=== PATIENT | male | born 1970 | race Caucasian/White ===

== ENCOUNTER 2023-02-26 08:08 | Inpatient (IN) | payer BC ==
[~2023-02-26] VITALS: Ht 185.4 cm; Wt 99.8 kg
[2023-02-26 08:11] VITALS: BP_SYST 173; PULSE 75; O2SAT 98
[2023-02-26 08:40] LABS: BASOPHILS % (AUTO) 0.1 % (0.0-2.0); EOSINOPHILS % (AUTO) 0.1 % (0.0-4.0); HEMATOCRIT 33.5 % (36-54); HEMOGLOBIN 10.5 g/dL (14.0-18.0); LYMPHOCYTES # (AUTO) 0.5 K/uL (1.0-5.5); LYMPHOCYTES % (AUTO) 2.7 % (20.5-51.5); MEAN CORPUSCULAR HEMOGLOBIN 28 pg (27-31); MEAN CORPUSCULAR HGB CONC 31 % (32-36); MEAN CORPUSCULAR VOLUME 89 fL (79.0-98.0); MONOCYTES # (AUTO) 1.1 K/uL (0.0-1.0); MONOCYTES % (AUTO) 5.6 % (1.7-9.3); NEUTROPHILS # (AUTO) 18.2 K/uL (1.8-7.7); NEUTROPHILS % (AUTO) 91.5 % (40.0-70.0); PLATELET COUNT (AUTO) 327 K/uL (130-430); RED BLOOD CELL COUNT(AUTO) 3.76 MIL/uL (4.2-6.2); RED CELL DISTRIBUTION WIDTH 15.6 % (9.0-15.0); WHITE BLOOD COUNT (AUTO) 19.8 K/uL (4.8-10.8)
[2023-02-26 08:54] LABS: ALBUMIN 2.2 g/dL (3.4-4.8); CALCIUM 7.2 mg/dL (8.4-11.0); TOTAL BILIRUBIN 0.9 mg/dL (0.0-1.0)
[2023-02-26] MEDS ORDERED: FURO80TA86 PO (08:59)
[2023-02-26] MEDS ORDERED: SODI650T PO (08:59)
[2023-02-26] MEDS ORDERED: INSU100V53 SUBCUT (08:59)
[2023-02-26] MEDS ORDERED: ISOS30TA85 PO (08:59)
[2023-02-26] MEDS ORDERED: VITD2000 PO (08:59)
[2023-02-26] MEDS ORDERED: INSU100V42 SUBCUT (08:59)
[2023-02-26] MEDS ORDERED: FOLI0.8T41 PO (08:59)
[2023-02-26] MEDS ORDERED: CARV25TA55 PO (08:59)
[2023-02-26] MEDS ORDERED: FOLI-43 PO (08:59)
[2023-02-26] MEDS ORDERED: HYDR-4039 PO (08:59)
[2023-02-26] MEDS ORDERED: CALC667T6 PO (08:59)
[2023-02-26] MEDS ORDERED: KAY15 PO (08:59)
[2023-02-26 09:00] LABS: CREATININE 8.44 mg/dL (0.55-1.30)
[2023-02-26] MEDS ORDERED: LORazepam 2 MG/ML VIAL ONE (09:53)
[2023-02-26] MEDS ORDERED: ZOLPIDEM TARTRATE 5 MG TABLET PO PRN (10:00)
[2023-02-26] MEDS ORDERED: POTASSIUM CHLORIDE 20 MEQ TAB.PRT.SR PO PRN (10:00)
[2023-02-26] MEDS ORDERED: LORazepam 2 MG/ML VIAL IVP ONE (10:00)
[2023-02-26] MEDS ORDERED: MAGNESIUM SULFATE 50 ML IV PRN (10:00)
[2023-02-26] MEDS ORDERED: DOCUSATE SODIUM 100 MG CAPSULE PO PRN (10:00)
[2023-02-26] MEDS ORDERED: levETIRAcetam 1,000 MG in NS 90 ML IV ONE (10:00)
[2023-02-26] MEDS ORDERED: MORPHINE 2 MG/ML INJ. SYRINGE IVP PRN (10:00)
[2023-02-26] MEDS ORDERED: hydrALAZINE HCL 20 MG/ML VIAL IVP PRN (10:00)
[2023-02-26] MEDS ORDERED: ACETAMINOPHEN 325 MG TABLET PO PRN ×2 (10:00→11:30)
[2023-02-26] MEDS ORDERED: MUPIROCIN 2% TOPICAL OINTMENT 22 GM NS PRN (10:00)
[2023-02-26] MEDS ORDERED: DEXTROSE 50% JECT 50 ML DISP.SYRIN IVP PRN (10:00)
[2023-02-26] MEDS ORDERED: VANCOMYCIN HCL 1,000 MG in NS 250 ML IV ONE (14:00)
[2023-02-26 14:51] VITALS: BP_SYST 147; PULSE 69; RESP 17; TEMP 98.2; O2SAT 100
[2023-02-26] MEDS: NACL 0.9% 1,000 ML IV SCH (15:32)
[2023-02-26] MEDS: hydrALAZINE HCL 25 MG TABLET PO SCH ×2 (15:39→20:58)
[2023-02-26] MEDS: CALCIUM ACETATE 667 MG CAP PO SCH ×2 (15:39→20:58)
[2023-02-26 16:00] VITALS: BP_SYST 130; PULSE 72; RESP 18; TEMP 97.6; O2SAT 99
[2023-02-26 19:00] VITALS: O2SAT 94
[2023-02-26 20:00] VITALS: BP_SYST 153; PULSE 78; RESP 18; TEMP 98; O2SAT 97
[2023-02-26] MEDS: levETIRAcetam 500 MG IV PREMIX 100 ML IV SCH (20:54)
[2023-02-26] MEDS: HEPARIN SODIUM,PORCINE 5,000 UNITS/ML VIAL SUBCUT SCH (20:59)
[2023-02-26] MEDS: CARVEDILOL 25 MG TABLET (COREG) PO SCH (21:10)
[2023-02-26 23:54] VITALS: O2SAT 94
[2023-02-27] VITALS (7 sets, daily range): BP systolic 126–153; PULSE 68–77; RESP 16–20; TEMP 97.1–98.5; O2SAT 95–99
[2023-02-27] MEDS: CEFEPIME 1 GM in D5W 50 ML IV SCH (04:20)
[2023-02-27 05:13] LABS: BASOPHILS % (AUTO) 0.1 % (0.0-2.0); EOSINOPHILS % (AUTO) 0.3 % (0.0-4.0); HEMATOCRIT 28.1 % (36-54); LYMPHOCYTES # (AUTO) 0.7 K/uL (1.0-5.5); LYMPHOCYTES % (AUTO) 5.7 % (20.5-51.5); MEAN CORPUSCULAR HEMOGLOBIN 28 pg (27-31); MEAN CORPUSCULAR HGB CONC 32 % (32-36); MEAN CORPUSCULAR VOLUME 89 fL (79.0-98.0); MONOCYTES % (AUTO) 7.7 % (1.7-9.3); NEUTROPHILS # (AUTO) 11.1 K/uL (1.8-7.7); NEUTROPHILS % (AUTO) 86.2 % (40.0-70.0); PLATELET COUNT (AUTO) 248 K/uL (130-430); RED BLOOD CELL COUNT(AUTO) 3.17 MIL/uL (4.2-6.2); RED CELL DISTRIBUTION WIDTH 15.1 % (9.0-15.0); WHITE BLOOD COUNT (AUTO) 12.9 K/uL (4.8-10.8)
[2023-02-27 05:30] LABS: CREATININE 5.97 mg/dL (0.55-1.30); VANCOMYCIN,RANDOM 14.9 ug/mL
[2023-02-27 05:45] LABS: CALCIUM 6.8 mg/dL (8.4-11.0)
[2023-02-27] MEDS: CLINDAMYCIN HCL 150 MG CAPSULE PO SCH ×3 (06:31→18:29)
[2023-02-27] MEDS ORDERED: CARVEDILOL 25 MG TABLET (COREG) PO SCH (09:00)
[2023-02-27] MEDS: NACL 0.9% 1,000 ML IV SCH (09:08)
[2023-02-27] MEDS: levETIRAcetam 500 MG IV PREMIX 100 ML IV SCH (09:08)
[2023-02-27] MEDS: hydrALAZINE HCL 25 MG TABLET PO SCH ×3 (09:09→21:58)
[2023-02-27] MEDS: CARVEDILOL 25 MG TABLET (COREG) PO SCH ×2 (09:10→21:58)
[2023-02-27] MEDS: FUROSEMIDE 80 MG TABLET PO SCH (09:10)
[2023-02-27] MEDS: SODIUM BICARBONATE 650 MG TABLET PO SCH (09:10)
[2023-02-27] MEDS: ISOSORBIDE MONONITRATE 30 MG TAB.ER.24H PO SCH (09:10)
[2023-02-27] MEDS: CALCIUM ACETATE 667 MG CAP PO SCH ×3 (09:10→21:58)
[2023-02-27] MEDS: HEPARIN SODIUM,PORCINE 5,000 UNITS/ML VIAL SUBCUT SCH ×2 (09:11→22:01)
[2023-02-27] MEDS ORDERED: VANCOMYCIN HCL 750 MG in NS 250 ML IV ONE (11:00)
[2023-02-27] MEDS: INSULIN LISPRO SLIDING SCALE 100 UNITS/ML, 3 ML VIAL (humaLOG) SUBCUT PRN (12:47)
[2023-02-27] MEDS: levETIRAcetam 500 MG TABLET PO SCH (22:02)
[2023-02-28] VITALS: BP_SYST 129; PULSE 68; RESP 18; TEMP 98.2; O2SAT 96
[2023-02-28] MEDS: LORazepam 2 MG/ML VIAL IVP PRN ×2 (00:59→15:28)
[2023-02-28] MEDS: CLINDAMYCIN HCL 150 MG CAPSULE PO SCH ×4 (00:59→17:23)
[2023-02-28] MEDS: NACL 0.9% 1,000 ML IV SCH ×2 (02:00→21:40)
[2023-02-28 04:00] VITALS: BP_SYST 140; PULSE 69; RESP 16; TEMP 98.5; O2SAT 97
[2023-02-28] MEDS: CEFEPIME 1 GM in D5W 50 ML IV SCH (04:39)
[2023-02-28 06:22] LABS: BASOPHILS % (AUTO) 0.3 % (0.0-2.0); EOSINOPHILS # (AUTO) 0.1 K/uL (0.0-0.4); EOSINOPHILS % (AUTO) 0.5 % (0.0-4.0); HEMATOCRIT 26.9 % (36-54); HEMOGLOBIN 8.8 g/dL (14.0-18.0); LYMPHOCYTES # (AUTO) 0.5 K/uL (1.0-5.5); LYMPHOCYTES % (AUTO) 4.9 % (20.5-51.5); MEAN CORPUSCULAR HEMOGLOBIN 29 pg (27-31); MEAN CORPUSCULAR HGB CONC 33 % (32-36); MEAN CORPUSCULAR VOLUME 89 fL (79.0-98.0); MONOCYTES # (AUTO) 0.8 K/uL (0.0-1.0); MONOCYTES % (AUTO) 7.9 % (1.7-9.3); NEUTROPHILS # (AUTO) 9.2 K/uL (1.8-7.7); NEUTROPHILS % (AUTO) 86.4 % (40.0-70.0); PLATELET COUNT (AUTO) 239 K/uL (130-430); RED BLOOD CELL COUNT(AUTO) 3.02 MIL/uL (4.2-6.2); RED CELL DISTRIBUTION WIDTH 15.6 % (9.0-15.0); WHITE BLOOD COUNT (AUTO) 10.7 K/uL (4.8-10.8)
[2023-02-28 06:39] LABS: CREATININE 7.45 mg/dL (0.55-1.30)
[2023-02-28 07:00] LABS: CALCIUM 6.6 mg/dL (8.4-11.0)
[2023-02-28 07:42] LABS: VANCOMYCIN,RANDOM 20.4 ug/mL
[2023-02-28 08:00] VITALS: O2SAT 96
[2023-02-28] MEDS: FUROSEMIDE 80 MG TABLET PO SCH (08:45)
[2023-02-28] MEDS: levETIRAcetam 500 MG TABLET PO SCH ×2 (08:45→20:58)
[2023-02-28] MEDS: ISOSORBIDE MONONITRATE 30 MG TAB.ER.24H PO SCH (08:46)
[2023-02-28] MEDS: SODIUM BICARBONATE 650 MG TABLET PO SCH (08:46)
[2023-02-28] MEDS: CALCIUM ACETATE 667 MG CAP PO SCH ×3 (08:46→20:58)
[2023-02-28] MEDS: HEPARIN SODIUM,PORCINE 5,000 UNITS/ML VIAL SUBCUT SCH ×2 (08:49→20:59)
[2023-02-28] MEDS: CARVEDILOL 25 MG TABLET (COREG) PO SCH ×2 (08:50→20:58)
[2023-02-28] MEDS: hydrALAZINE HCL 25 MG TABLET PO SCH ×3 (08:50→20:58)
[2023-02-28 11:51] VITALS: BP_SYST 142; PULSE 71; RESP 17; TEMP 97.7; O2SAT 98
[2023-02-28 17:28] VITALS: BP_SYST 131; PULSE 83; RESP 18; TEMP 98.1; O2SAT 95
[2023-02-28] MEDS ORDERED: LORazepam 2 MG/ML VIAL IVP ONE (18:30)
[2023-02-28 20:00] VITALS: BP_SYST 147; PULSE 85; RESP 18; TEMP 99.1; O2SAT 96
[2023-02-28] MEDS: MORPHINE 2 MG/ML INJ. SYRINGE IVP PRN (21:12)
[2023-02-28 21:52] LABS: BASOPHILS % (AUTO) 0.4 % (0.0-2.0); EOSINOPHILS # (AUTO) 0.1 K/uL (0.0-0.4); EOSINOPHILS % (AUTO) 0.6 % (0.0-4.0); HEMATOCRIT 23.1 % (36-54); LYMPHOCYTES # (AUTO) 0.7 K/uL (1.0-5.5); LYMPHOCYTES % (AUTO) 5.7 % (20.5-51.5); MEAN CORPUSCULAR HEMOGLOBIN 29 pg (27-31); MEAN CORPUSCULAR HGB CONC 32 % (32-36); MEAN CORPUSCULAR VOLUME 89 fL (79.0-98.0); MONOCYTES # (AUTO) 0.9 K/uL (0.0-1.0); MONOCYTES % (AUTO) 6.9 % (1.7-9.3); NEUTROPHILS # (AUTO) 11.3 K/uL (1.8-7.7); NEUTROPHILS % (AUTO) 86.4 % (40.0-70.0); PLATELET COUNT (AUTO) 252 K/uL (130-430); RED BLOOD CELL COUNT(AUTO) 2.59 MIL/uL (4.2-6.2); RED CELL DISTRIBUTION WIDTH 15.3 % (9.0-15.0); WHITE BLOOD COUNT (AUTO) 13.1 K/uL (4.8-10.8)
[2023-02-28 21:53] LABS: HEMOGLOBIN 7.4 g/dL (14.0-18.0)
[2023-03-01] VITALS (12 sets, daily range): BP systolic 103–152; PULSE 71–85; RESP 16–19; TEMP 97.2–99.9; O2SAT 92–99
[2023-03-01] MEDS: CLINDAMYCIN HCL 150 MG CAPSULE PO SCH ×5 (01:17→17:10)
[2023-03-01] MEDS: CEFEPIME 1 GM in D5W 50 ML IV SCH ×2 (04:15→22:10)
[2023-03-01 06:33] LABS: BASOPHILS # (AUTO) 0.1 K/uL (0.0-0.2); BASOPHILS % (AUTO) 0.5 % (0.0-2.0); EOSINOPHILS # (AUTO) 0.1 K/uL (0.0-0.4); EOSINOPHILS % (AUTO) 0.5 % (0.0-4.0); HEMATOCRIT 23.2 % (36-54); HEMOGLOBIN 7.5 g/dL (14.0-18.0); LYMPHOCYTES # (AUTO) 0.6 K/uL (1.0-5.5); LYMPHOCYTES % (AUTO) 5.9 % (20.5-51.5); MEAN CORPUSCULAR HEMOGLOBIN 29 pg (27-31); MEAN CORPUSCULAR HGB CONC 32 % (32-36); MEAN CORPUSCULAR VOLUME 89 fL (79.0-98.0); MONOCYTES # (AUTO) 0.7 K/uL (0.0-1.0); MONOCYTES % (AUTO) 7.3 % (1.7-9.3); NEUTROPHILS # (AUTO) 8.8 K/uL (1.8-7.7); NEUTROPHILS % (AUTO) 85.8 % (40.0-70.0); PLATELET COUNT (AUTO) 211 K/uL (130-430); RED BLOOD CELL COUNT(AUTO) 2.62 MIL/uL (4.2-6.2); RED CELL DISTRIBUTION WIDTH 15.2 % (9.0-15.0); WHITE BLOOD COUNT (AUTO) 10.3 K/uL (4.8-10.8)
[2023-03-01 06:51] LABS: CREATININE 6.02 mg/dL (0.55-1.30); VANCOMYCIN,RANDOM 15.3 ug/mL
[2023-03-01 07:24] LABS: CALCIUM 6.6 mg/dL (8.4-11.0)
[2023-03-01] MEDS ORDERED: PANTOPRAZOLE SODIUM 40 MG/VIAL (PROTONIX) IVP ONE (08:30)
[2023-03-01] MEDS: CALCIUM ACETATE 667 MG CAP PO SCH ×3 (09:49→22:18)
[2023-03-01] MEDS: SODIUM BICARBONATE 650 MG TABLET PO SCH (09:49)
[2023-03-01] MEDS: levETIRAcetam 500 MG TABLET PO SCH ×2 (09:50→22:18)
[2023-03-01] MEDS: ISOSORBIDE MONONITRATE 30 MG TAB.ER.24H PO SCH (09:51)
[2023-03-01] MEDS: CARVEDILOL 25 MG TABLET (COREG) PO SCH ×2 (09:52→21:00)
[2023-03-01] MEDS: hydrALAZINE HCL 25 MG TABLET PO SCH ×3 (09:53→21:00)
[2023-03-01] MEDS: FUROSEMIDE 80 MG TABLET PO SCH (09:54)
[2023-03-01] MEDS: NACL 0.9% 1,000 ML IV SCH (10:27)
[2023-03-01] MEDS: INSULIN LISPRO SLIDING SCALE 100 UNITS/ML, 3 ML VIAL (humaLOG) SUBCUT PRN (12:50)
[2023-03-01 13:49] LABS: BASOPHILS % (AUTO) 0.4 % (0.0-2.0); EOSINOPHILS % (AUTO) 0.4 % (0.0-4.0); LYMPHOCYTES # (AUTO) 0.6 K/uL (1.0-5.5); LYMPHOCYTES % (AUTO) 5.4 % (20.5-51.5); MEAN CORPUSCULAR HEMOGLOBIN 29 pg (27-31); MEAN CORPUSCULAR HGB CONC 33 % (32-36); MEAN CORPUSCULAR VOLUME 89 fL (79.0-98.0); MONOCYTES # (AUTO) 0.7 K/uL (0.0-1.0); MONOCYTES % (AUTO) 6.7 % (1.7-9.3); NEUTROPHILS # (AUTO) 9.3 K/uL (1.8-7.7); NEUTROPHILS % (AUTO) 87.1 % (40.0-70.0); PLATELET COUNT (AUTO) 191 K/uL (130-430); RED BLOOD CELL COUNT(AUTO) 2.32 MIL/uL (4.2-6.2); RED CELL DISTRIBUTION WIDTH 15.1 % (9.0-15.0); WHITE BLOOD COUNT (AUTO) 10.7 K/uL (4.8-10.8)
[2023-03-01 14:04] LABS: HEMATOCRIT 20.6 % (36-54); HEMOGLOBIN 6.7 g/dL (14.0-18.0)
[2023-03-02] MEDS: CLINDAMYCIN HCL 150 MG CAPSULE PO SCH ×5 (00:34→23:18)
[2023-03-02] MEDS: ONDANSETRON HCL 4 MG/2 ML VIAL IVP PRN (03:43)
[2023-03-02 05:24] LABS: BASOPHILS # (AUTO) 0.1 K/uL (0.0-0.2); BASOPHILS % (AUTO) 0.7 % (0.0-2.0); EOSINOPHILS # (AUTO) 0.1 K/uL (0.0-0.4); EOSINOPHILS % (AUTO) 0.5 % (0.0-4.0); LYMPHOCYTES # (AUTO) 0.7 K/uL (1.0-5.5); LYMPHOCYTES % (AUTO) 5.4 % (20.5-51.5); MEAN CORPUSCULAR HEMOGLOBIN 28 pg (27-31); MEAN CORPUSCULAR HGB CONC 32 % (32-36); MEAN CORPUSCULAR VOLUME 89 fL (79.0-98.0); MONOCYTES # (AUTO) 0.7 K/uL (0.0-1.0); MONOCYTES % (AUTO) 6.1 % (1.7-9.3); NEUTROPHILS # (AUTO) 10.6 K/uL (1.8-7.7); NEUTROPHILS % (AUTO) 87.3 % (40.0-70.0); PLATELET COUNT (AUTO) 181 K/uL (130-430); RED BLOOD CELL COUNT(AUTO) 2.18 MIL/uL (4.2-6.2); RED CELL DISTRIBUTION WIDTH 15.4 % (9.0-15.0); WHITE BLOOD COUNT (AUTO) 12.2 K/uL (4.8-10.8)
[2023-03-02 05:32] LABS: HEMOGLOBIN 6.2 g/dL (14.0-18.0)
[2023-03-02 05:33] LABS: HEMATOCRIT 19.3 % (36-54)
[2023-03-02 05:46] LABS: INR 1.3 (0.80-1.20); PROTHROMBIN TIME 13.1 SECS (9.5-12.5)
[2023-03-02 06:00] LABS: VANCOMYCIN,RANDOM 13.3 ug/mL
[2023-03-02 06:20] LABS: CALCIUM 6.3 mg/dL (8.4-11.0); CREATININE 7.59 mg/dL (0.55-1.30)
[2023-03-02 07:00] VITALS: O2SAT 100
[2023-03-02 08:00] VITALS: BP_SYST 133; PULSE 70; RESP 18; TEMP 97.3; O2SAT 100
[2023-03-02] MEDS ORDERED: CALCIUM GLUCONATE 1 GM in NS 100 ML IV ONE (08:00)
[2023-03-02] MEDS: PANTOPRAZOLE SODIUM 40 MG in NS 50 ML IV SCH ×4 (08:00→23:18)
[2023-03-02] MEDS: hydrALAZINE HCL 25 MG TABLET PO SCH ×3 (09:00→20:34)
[2023-03-02] MEDS: CALCIUM ACETATE 667 MG CAP PO SCH ×3 (09:00→20:33)
[2023-03-02] MEDS: SODIUM BICARBONATE 650 MG TABLET PO SCH (09:00)
[2023-03-02] MEDS ORDERED: PANTOPRAZOLE SODIUM 40 MG/VIAL (PROTONIX) IVP SCH (09:00)
[2023-03-02] MEDS: FUROSEMIDE 80 MG TABLET PO SCH (09:00)
[2023-03-02] MEDS: levETIRAcetam 500 MG TABLET PO SCH ×2 (09:00→20:33)
[2023-03-02] MEDS: ISOSORBIDE MONONITRATE 30 MG TAB.ER.24H PO SCH (09:00)
[2023-03-02] MEDS: CARVEDILOL 25 MG TABLET (COREG) PO SCH ×2 (09:00→20:34)
[2023-03-02 11:02] VITALS: BP_SYST 100; PULSE 67; RESP 17; TEMP 97.8; O2SAT 99
[2023-03-02] MEDS ORDERED: VANCOMYCIN HCL 1,000 MG in NS 250 ML IV ONE (14:00)
[2023-03-02] MEDS: NACL 0.9% 1,000 ML IV SCH (15:01)
[2023-03-02 16:53] VITALS: BP_SYST 150; PULSE 78; RESP 17; TEMP 97.5; O2SAT 97
[2023-03-02 17:22] LABS: BASOPHILS # (AUTO) 0.1 K/uL (0.0-0.2); BASOPHILS % (AUTO) 1.4 % (0.0-2.0); EOSINOPHILS # (AUTO) 0.1 K/uL (0.0-0.4); EOSINOPHILS % (AUTO) 1.1 % (0.0-4.0); HEMOGLOBIN 7.6 g/dL (14.0-18.0); LYMPHOCYTES # (AUTO) 0.6 K/uL (1.0-5.5); LYMPHOCYTES % (AUTO) 6.6 % (20.5-51.5); MEAN CORPUSCULAR HEMOGLOBIN 29 pg (27-31); MEAN CORPUSCULAR HGB CONC 33 % (32-36); MEAN CORPUSCULAR VOLUME 88 fL (79.0-98.0); MONOCYTES # (AUTO) 0.5 K/uL (0.0-1.0); MONOCYTES % (AUTO) 5.5 % (1.7-9.3); NEUTROPHILS # (AUTO) 8.2 K/uL (1.8-7.7); NEUTROPHILS % (AUTO) 85.4 % (40.0-70.0); PLATELET COUNT (AUTO) 165 K/uL (130-430); RED BLOOD CELL COUNT(AUTO) 2.61 MIL/uL (4.2-6.2); RED CELL DISTRIBUTION WIDTH 15.4 % (9.0-15.0); WHITE BLOOD COUNT (AUTO) 9.6 K/uL (4.8-10.8)
[2023-03-02] MEDS ORDERED: SIMETHICONE 40 MG/0.6 ML ML ONE (18:56)
[2023-03-02] MEDS ORDERED: fentaNYL CITRATE/PF 100 MCG/2 ML AMP IVP ONE (18:58)
[2023-03-02] MEDS ORDERED: MIDAZOLAM HCL 5 MG/5 ML VIAL IVP ONE (19:01)
[2023-03-02 20:30] VITALS: BP_SYST 110; PULSE 65; RESP 18; TEMP 96.6; O2SAT 100
[2023-03-02] MEDS: INSULIN LISPRO SLIDING SCALE 100 UNITS/ML, 3 ML VIAL (humaLOG) SUBCUT PRN (20:41)
[2023-03-03 01:06] VITALS: BP_SYST 138; PULSE 65; RESP 16; TEMP 97.2; O2SAT 99
[2023-03-03] MEDS: CEFEPIME 1 GM in D5W 50 ML IV SCH (03:59)
[2023-03-03] MEDS: PANTOPRAZOLE SODIUM 40 MG in NS 50 ML IV SCH ×4 (03:59→23:11)
[2023-03-03] MEDS: CLINDAMYCIN HCL 150 MG CAPSULE PO SCH ×4 (05:11→23:10)
[2023-03-03 05:49] LABS: BASOPHILS # (AUTO) 0.1 K/uL (0.0-0.2); BASOPHILS % (AUTO) 0.7 % (0.0-2.0); EOSINOPHILS # (AUTO) 0.1 K/uL (0.0-0.4); EOSINOPHILS % (AUTO) 1.1 % (0.0-4.0); HEMATOCRIT 22.5 % (36-54); HEMOGLOBIN 7.3 g/dL (14.0-18.0); LYMPHOCYTES # (AUTO) 0.6 K/uL (1.0-5.5); LYMPHOCYTES % (AUTO) 5.6 % (20.5-51.5); MEAN CORPUSCULAR HEMOGLOBIN 29 pg (27-31); MEAN CORPUSCULAR HGB CONC 32 % (32-36); MEAN CORPUSCULAR VOLUME 89 fL (79.0-98.0); MONOCYTES # (AUTO) 0.6 K/uL (0.0-1.0); MONOCYTES % (AUTO) 5.3 % (1.7-9.3); NEUTROPHILS # (AUTO) 9.7 K/uL (1.8-7.7); NEUTROPHILS % (AUTO) 87.3 % (40.0-70.0); PLATELET COUNT (AUTO) 175 K/uL (130-430); RED BLOOD CELL COUNT(AUTO) 2.52 MIL/uL (4.2-6.2); RED CELL DISTRIBUTION WIDTH 15.3 % (9.0-15.0); WHITE BLOOD COUNT (AUTO) 11.1 K/uL (4.8-10.8)
[2023-03-03 06:34] LABS: CALCIUM 6.5 mg/dL (8.4-11.0); CREATININE 8.49 mg/dL (0.55-1.30)
[2023-03-03 08:00] VITALS: BP_SYST 136; PULSE 70; RESP 20; TEMP 97.9; O2SAT 98
[2023-03-03] MEDS: FUROSEMIDE 80 MG TABLET PO SCH (09:00)
[2023-03-03] MEDS: CALCIUM ACETATE 667 MG CAP PO SCH ×3 (09:00→20:09)
[2023-03-03] MEDS: hydrALAZINE HCL 25 MG TABLET PO SCH ×3 (09:00→20:08)
[2023-03-03] MEDS: CARVEDILOL 25 MG TABLET (COREG) PO SCH ×2 (09:00→20:08)
[2023-03-03] MEDS: ISOSORBIDE MONONITRATE 30 MG TAB.ER.24H PO SCH (09:00)
[2023-03-03 12:00] VITALS: BP_SYST 123; PULSE 71; RESP 18; TEMP 97.2; O2SAT 98
[2023-03-03] MEDS: INSULIN LISPRO SLIDING SCALE 100 UNITS/ML, 3 ML VIAL (humaLOG) SUBCUT PRN ×2 (12:21→20:16)
[2023-03-03 14:03] LABS: BASOPHILS # (AUTO) 0.1 K/uL (0.0-0.2); BASOPHILS % (AUTO) 0.7 % (0.0-2.0); EOSINOPHILS # (AUTO) 0.1 K/uL (0.0-0.4); EOSINOPHILS % (AUTO) 1.3 % (0.0-4.0); HEMOGLOBIN 7.1 g/dL (14.0-18.0); LYMPHOCYTES # (AUTO) 0.6 K/uL (1.0-5.5); LYMPHOCYTES % (AUTO) 5.5 % (20.5-51.5); MEAN CORPUSCULAR HEMOGLOBIN 29 pg (27-31); MEAN CORPUSCULAR HGB CONC 33 % (32-36); MEAN CORPUSCULAR VOLUME 88 fL (79.0-98.0); MONOCYTES # (AUTO) 0.6 K/uL (0.0-1.0); MONOCYTES % (AUTO) 5.3 % (1.7-9.3); NEUTROPHILS # (AUTO) 9.5 K/uL (1.8-7.7); NEUTROPHILS % (AUTO) 87.2 % (40.0-70.0); PLATELET COUNT (AUTO) 189 K/uL (130-430); RED BLOOD CELL COUNT(AUTO) 2.44 MIL/uL (4.2-6.2); RED CELL DISTRIBUTION WIDTH 15.1 % (9.0-15.0); WHITE BLOOD COUNT (AUTO) 10.9 K/uL (4.8-10.8)
[2023-03-03 14:14] LABS: HEMATOCRIT 21.5 % (36-54)
[2023-03-03 16:00] VITALS: BP_SYST 176; PULSE 82; RESP 18; TEMP 97; O2SAT 99
[2023-03-03] MEDS: SODIUM BICARBONATE 650 MG TABLET PO SCH (17:54)
[2023-03-03] MEDS: levETIRAcetam 500 MG TABLET PO SCH ×2 (17:55→20:07)
[2023-03-03] MEDS: NACL 0.9% 1,000 ML IV SCH (17:58)
[2023-03-03 19:55] VITALS: BP_SYST 156; PULSE 86; RESP 18; TEMP 97.8; O2SAT 99
[2023-03-03] MEDS ORDERED: iohexoL 350 mgI/mL, 100 ML INFUS..BTL IV ONE (23:47)
[2023-03-04] VITALS (16 sets, daily range): BP systolic 104–138; PULSE 68–79; RESP 15–20; TEMP 97.5–98.5; O2SAT 95–100
[2023-03-04] MEDS: CEFEPIME 1 GM in D5W 50 ML IV SCH (04:19)
[2023-03-04] MEDS: PANTOPRAZOLE SODIUM 40 MG in NS 50 ML IV SCH ×5 (04:19→20:57)
[2023-03-04 05:34] LABS: BASOPHILS # (AUTO) 0.1 K/uL (0.0-0.2); BASOPHILS % (AUTO) 0.6 % (0.0-2.0); EOSINOPHILS # (AUTO) 0.1 K/uL (0.0-0.4); LYMPHOCYTES # (AUTO) 0.6 K/uL (1.0-5.5); LYMPHOCYTES % (AUTO) 7.3 % (20.5-51.5); MEAN CORPUSCULAR HEMOGLOBIN 29 pg (27-31); MEAN CORPUSCULAR HGB CONC 34 % (32-36); MEAN CORPUSCULAR VOLUME 87 fL (79.0-98.0); MONOCYTES # (AUTO) 0.6 K/uL (0.0-1.0); MONOCYTES % (AUTO) 7.3 % (1.7-9.3); NEUTROPHILS # (AUTO) 6.9 K/uL (1.8-7.7); NEUTROPHILS % (AUTO) 83.8 % (40.0-70.0); PLATELET COUNT (AUTO) 153 K/uL (130-430); WHITE BLOOD COUNT (AUTO) 8.3 K/uL (4.8-10.8)
[2023-03-04 05:38] LABS: RED BLOOD CELL COUNT(AUTO) 1.82 MIL/uL (4.2-6.2)
[2023-03-04] MEDS: CLINDAMYCIN HCL 150 MG CAPSULE PO SCH ×3 (05:39→18:00)
[2023-03-04 05:42] LABS: HEMATOCRIT 15.9 % (36-54); HEMOGLOBIN 5.3 g/dL (14.0-18.0)
[2023-03-04] MEDS: NACL 0.9% 1,000 ML IV SCH (05:45)
[2023-03-04] MEDS: SODIUM BICARBONATE 650 MG TABLET PO SCH (09:00)
[2023-03-04] MEDS: CALCIUM ACETATE 667 MG CAP PO SCH ×3 (09:00→20:59)
[2023-03-04] MEDS: FUROSEMIDE 80 MG TABLET PO SCH (09:00)
[2023-03-04] MEDS: levETIRAcetam 500 MG TABLET PO SCH ×2 (09:00→20:59)
[2023-03-04] MEDS: ISOSORBIDE MONONITRATE 30 MG TAB.ER.24H PO SCH (09:00)
[2023-03-04] MEDS: hydrALAZINE HCL 25 MG TABLET PO SCH ×3 (09:00→20:58)
[2023-03-04] MEDS: CARVEDILOL 25 MG TABLET (COREG) PO SCH ×2 (09:00→20:58)
[2023-03-04] MEDS ORDERED: fentaNYL CITRATE/PF 100 MCG/2 ML AMP ONE (13:33)
[2023-03-04] MEDS ORDERED: MIDAZOLAM HCL 5 MG/5 ML VIAL ONE ×2 (13:33→15:26)
[2023-03-04] MEDS ORDERED: SIMETHICONE 40 MG/0.6 ML ML ONE (13:33)
[2023-03-04 16:16] LABS: BASOPHILS # (AUTO) 0.1 K/uL (0.0-0.2); EOSINOPHILS # (AUTO) 0.1 K/uL (0.0-0.4); EOSINOPHILS % (AUTO) 0.6 % (0.0-4.0); HEMATOCRIT 22.4 % (36-54); HEMOGLOBIN 7.3 g/dL (14.0-18.0); LYMPHOCYTES # (AUTO) 0.8 K/uL (1.0-5.5); LYMPHOCYTES % (AUTO) 6.3 % (20.5-51.5); MEAN CORPUSCULAR HEMOGLOBIN 28 pg (27-31); MEAN CORPUSCULAR HGB CONC 33 % (32-36); MEAN CORPUSCULAR VOLUME 86 fL (79.0-98.0); MONOCYTES # (AUTO) 0.8 K/uL (0.0-1.0); MONOCYTES % (AUTO) 6.4 % (1.7-9.3); NEUTROPHILS # (AUTO) 10.6 K/uL (1.8-7.7); NEUTROPHILS % (AUTO) 85.7 % (40.0-70.0); PLATELET COUNT (AUTO) 213 K/uL (130-430); RED BLOOD CELL COUNT(AUTO) 2.59 MIL/uL (4.2-6.2); RED CELL DISTRIBUTION WIDTH 15.5 % (9.0-15.0); WHITE BLOOD COUNT (AUTO) 12.4 K/uL (4.8-10.8)
[2023-03-04] MEDS ORDERED: EPINEPHrine JECT 0.1 MG/ML SYR ONE (16:23)
[2023-03-04 22:35] LABS: BASOPHILS # (AUTO) 0.1 K/uL (0.0-0.2); BASOPHILS % (AUTO) 0.9 % (0.0-2.0); MEAN CORPUSCULAR HEMOGLOBIN 29 pg (27-31); MEAN CORPUSCULAR HGB CONC 34 % (32-36); MEAN CORPUSCULAR VOLUME 86 fL (79.0-98.0); MONOCYTES # (AUTO) 0.9 K/uL (0.0-1.0)
[2023-03-04 22:46] LABS: EOSINOPHILS # (AUTO) 0.2 K/uL (0.0-0.4); EOSINOPHILS % (AUTO) 1.1 % (0.0-4.0); LYMPHOCYTES % (AUTO) 6.9 % (20.5-51.5); NEUTROPHILS # (AUTO) 12.7 K/uL (1.8-7.7); NEUTROPHILS % (AUTO) 85.1 % (40.0-70.0); PLATELET COUNT (AUTO) 224 K/uL (130-430); RED BLOOD CELL COUNT(AUTO) 2.18 MIL/uL (4.2-6.2); RED CELL DISTRIBUTION WIDTH 15.7 % (9.0-15.0); WHITE BLOOD COUNT (AUTO) 14.9 K/uL (4.8-10.8)
[2023-03-04 23:00] LABS: HEMATOCRIT 18.7 % (36-54); HEMOGLOBIN 6.3 g/dL (14.0-18.0)
[2023-03-05] VITALS (18 sets, daily range): BP systolic 85–136; PULSE 68–77; RESP 10–22; TEMP 97.8–98.2; O2SAT 97–100
[2023-03-05] MEDS: NACL 0.9% 1,000 ML IV SCH ×2 (02:32→15:37)
[2023-03-05] MEDS: PANTOPRAZOLE SODIUM 40 MG in NS 50 ML IV SCH ×4 (02:32→15:37)
[2023-03-05] MEDS: CEFEPIME 1 GM in D5W 50 ML IV SCH (05:06)
[2023-03-05 05:14] LABS: BASOPHILS # (AUTO) 0.1 K/uL (0.0-0.2); BASOPHILS % (AUTO) 0.8 % (0.0-2.0); EOSINOPHILS # (AUTO) 0.2 K/uL (0.0-0.4); EOSINOPHILS % (AUTO) 1.3 % (0.0-4.0); LYMPHOCYTES # (AUTO) 0.9 K/uL (1.0-5.5); LYMPHOCYTES % (AUTO) 7.1 % (20.5-51.5); MEAN CORPUSCULAR HEMOGLOBIN 29 pg (27-31); MEAN CORPUSCULAR HGB CONC 33 % (32-36); MEAN CORPUSCULAR VOLUME 87 fL (79.0-98.0); MONOCYTES # (AUTO) 0.7 K/uL (0.0-1.0); MONOCYTES % (AUTO) 5.6 % (1.7-9.3); NEUTROPHILS # (AUTO) 10.6 K/uL (1.8-7.7); NEUTROPHILS % (AUTO) 85.2 % (40.0-70.0); PLATELET COUNT (AUTO) 179 K/uL (130-430); RED BLOOD CELL COUNT(AUTO) 2.18 MIL/uL (4.2-6.2); RED CELL DISTRIBUTION WIDTH 15.9 % (9.0-15.0); WHITE BLOOD COUNT (AUTO) 12.4 K/uL (4.8-10.8)
[2023-03-05 05:37] LABS: HEMATOCRIT 18.9 % (36-54); HEMOGLOBIN 6.3 g/dL (14.0-18.0)
[2023-03-05 05:42] LABS: ALBUMIN 1.1 g/dL (3.4-4.8); CREATININE 7.13 mg/dL (0.55-1.30); PHOSPHORUS 5.2 mg/dL (2.7-4.5); TOTAL BILIRUBIN 0.9 mg/dL (0.0-1.0); VANCOMYCIN,RANDOM 15.9 ug/mL
[2023-03-05 05:51] LABS: CALCIUM 5.9 mg/dL (8.4-11.0)
[2023-03-05] MEDS: CLINDAMYCIN HCL 150 MG CAPSULE PO SCH ×3 (06:00→13:03)
[2023-03-05 08:10] LABS: INR 1.2 (0.80-1.20); PROTHROMBIN TIME 12.4 SECS (9.5-12.5)
[2023-03-05] MEDS: hydrALAZINE HCL 25 MG TABLET PO SCH ×2 (08:45→15:00)
[2023-03-05] MEDS: CARVEDILOL 25 MG TABLET (COREG) PO SCH (08:46)
[2023-03-05] MEDS: levETIRAcetam 500 MG TABLET PO SCH (08:46)
[2023-03-05] MEDS: ISOSORBIDE MONONITRATE 30 MG TAB.ER.24H PO SCH (08:46)
[2023-03-05] MEDS: CALCIUM ACETATE 667 MG CAP PO SCH ×2 (08:47→15:38)
[2023-03-05] MEDS: SODIUM BICARBONATE 650 MG TABLET PO SCH (08:47)
[2023-03-05] MEDS: FUROSEMIDE 80 MG TABLET PO SCH (08:47)
[2023-03-05] MEDS: INSULIN LISPRO SLIDING SCALE 100 UNITS/ML, 3 ML VIAL (humaLOG) SUBCUT PRN (13:05)
[2023-03-05] MEDS: ONDANSETRON HCL 4 MG/2 ML VIAL IVP PRN (17:30)
[2023-03-05] MEDS: MORPHINE 2 MG/ML INJ. SYRINGE IVP PRN (17:30)
== END 2023-03-05 17:40 | disposition short-term general hospital (02) | DRG 871 ==
LOC: SED 08:08 → STU 09:57 → SMU 13:29 → STU 14:34 → SIC 03-04 07:52
PROVIDERS: ADMIT General Practice; ATTEND General Practice
PROC: 5A1D70Z Performance of Urinary Filtration, Intermittent, Less than 6 Hours Per Day (ICD-10-PCS; 2023-02-26)
PROC: 4A10X4Z Monitoring of Central Nervous Electrical Activity, External Approach (ICD-10-PCS; 2023-02-28)
PROC: 5A1D70Z Performance of Urinary Filtration, Intermittent, Less than 6 Hours Per Day (ICD-10-PCS; 2023-02-28)
PROC: 30233N1 Transfusion of Nonautologous Red Blood Cells into Peripheral Vein, Percutaneous Approach (ICD-10-PCS; 2023-03-01)
PROC: 0DB78ZX Excision of Stomach, Pylorus, Via Natural or Artificial Opening Endoscopic, Diagnostic (ICD-10-PCS; principal; 2023-03-02 07:30)
PROC: 5A1D70Z Performance of Urinary Filtration, Intermittent, Less than 6 Hours Per Day (ICD-10-PCS; 2023-03-03)
PROC: 5A1D70Z Performance of Urinary Filtration, Intermittent, Less than 6 Hours Per Day (ICD-10-PCS; 2023-03-04)
PROC: 05HY33Z Insertion of Infusion Device into Upper Vein, Percutaneous Approach (ICD-10-PCS; 2023-03-04)
PROC: B54MZZA Ultrasonography of Right Upper Extremity Veins, Guidance (ICD-10-PCS; 2023-03-04)
PROC: 0W3P8ZZ Control Bleeding in Gastrointestinal Tract, Via Natural or Artificial Opening Endoscopic (ICD-10-PCS; 2023-03-04 15:00)
PROC: 0DJD8ZZ Inspection of Lower Intestinal Tract, Via Natural or Artificial Opening Endoscopic (ICD-10-PCS; 2023-03-04 15:00)
DX: A41.9 Sepsis, unspecified organism (principal); A48.0 Gas gangrene; K26.4 Chronic or unspecified duodenal ulcer with hemorrhage; K29.71 Gastritis, unspecified, with bleeding; K29.81 Duodenitis with bleeding; K57.91 Diverticulosis of intestine, part unspecified, without perforation or abscess with bleeding; N18.6 End stage renal disease; G93.41 Metabolic encephalopathy; E11.52 Type 2 diabetes mellitus with diabetic peripheral angiopathy with gangrene; M31.9 Necrotizing vasculopathy, unspecified; N17.9 Acute kidney failure, unspecified; D62 Acute posthemorrhagic anemia; L03.116 Cellulitis of left lower limb; G40.209 Localization-related (focal) (partial) symptomatic epilepsy and epileptic syndromes with complex partial seizures, not intractable, without status epilepticus; I12.0 Hypertensive chronic kidney disease with stage 5 chronic kidney disease or end stage renal disease; E11.40 Type 2 diabetes mellitus with diabetic neuropathy, unspecified; E11.621 Type 2 diabetes mellitus with foot ulcer; E11.65 Type 2 diabetes mellitus with hyperglycemia; E88.09 Other disorders of plasma-protein metabolism, not elsewhere classified; E83.51 Hypocalcemia; I25.10 Atherosclerotic heart disease of native coronary artery without angina pectoris; D63.8 Anemia in other chronic diseases classified elsewhere; S91.302A Unspecified open wound, left foot, initial encounter; X58.XXXA Exposure to other specified factors, initial encounter; G31.9 Degenerative disease of nervous system, unspecified; K31.9 Disease of stomach and duodenum, unspecified; K64.4 Residual hemorrhoidal skin tags; E11.22 Type 2 diabetes mellitus with diabetic chronic kidney disease; L97.529 Non-pressure chronic ulcer of other part of left foot with unspecified severity; Z88.2 Allergy status to sulfonamides; Z79.899 Other long term (current) drug therapy; Z99.2 Dependence on renal dialysis; Y93.89 Activity, other specified; Y92.89 Other specified places as the place of occurrence of the external cause; Y99.8 Other external cause status; Z79.4 Long term (current) use of insulin
CPT/HCPCS: 36415; 43239; 70450-TC; 72191; 74175; 76376; 78278-TC; 80048; 80053; 80202; 82272; 83037; 83605; 83735; 84100; 85025; 85610-TC; 86886; 86900; 86901; 86920; 87040; 87070-TC; 87075-TC; 87081; 88305; 88312; 88313; 90935; 90937; 93005; 93923; 95816; 96365; 96375; 99285; C1751; C9113; G0378; J0171; J0360; J0610; J0692; J1644; J1953; J2060; J2250; J2270; J2405; J3010; J3370; J7030; J7050; J7060; P9021; Q9967